=== PATIENT | female | born 1980 | race African-American/Black ===

== ENCOUNTER 2018-01-21 05:37 | Day surgery (SDC) | payer OTHER ==
[~2018-01-21] VITALS: Ht 162.6 cm; Wt 68.9 kg
[~2018-01-21 05:37] MED LIST: COLACE100 MG PO; HYDROCODON-ACE1 EAC7 PO; IBUPROFEN800 MG PO; LISINOPRIL2.5 MG PO; PANTOPRAZOLE SO40 MG PO; PRENATAL TABLE1 EAC3 PO; PROBIOTIC1 EAC1 PO; TOPROL XL25 MG PO; TYLENOL EXTRA500 MG PO; VITAMIN D-32000 UNI2 PO
[2018-01-21 07:10] VITALS: BP 93/53
[2018-01-21] MEDS ORDERED: IBUPROFEN800 MG PO (08:30)
[2018-01-21] MEDS ORDERED: HYDROCODON-ACE1 EAC7 PO (08:30)
[2018-01-21 09:45] VITALS: BP 118/72
[2018-01-21 10:52] VITALS: BP 121/66
== END 2018-01-21 10:56 | disposition home or self-care (01) ==
LOC: SDC 05:37
DX: R93.8 Abnormal findings on diagnostic imaging of other specified body structures (principal); N85.4 Malposition of uterus; N97.9 Female infertility, unspecified; E22.1 Hyperprolactinemia; D57.3 Sickle-cell trait; E55.9 Vitamin D deficiency, unspecified; Z86.79 Personal history of other diseases of the circulatory system; Z82.49 Family history of ischemic heart disease and other diseases of the circulatory system; Z82.3 Family history of stroke; Z83.3 Family history of diabetes mellitus
CPT/HCPCS: 84702; 87641; 88305; J0131; J1100; J1170; J1885; J2250; J2405; J3010